=== PATIENT | female | born 1945 | race Caucasian/White ===

== ENCOUNTER → 2020-10-17 12:56 | Outpatient (CLI) | payer MEDICARE, OTHER, SELFPAY ==
--- NOTE | 2020-10-17 12:58 | CDU_ITS ---
Reason For Study: carotid stenosis Rt. Velocities/BP Lt. Velocities/BP Prox CCA 60.4/10.8 cm/sec. Prox CCA 59.3/17.6 cm/sec. Mid CCA 57.8/13.4 cm/sec. Mid CCA 59.3/16.3 cm/sec. Dist CCA 56.5/13.4 cm/sec. Dist CCA 58.1/17.6 cm/sec. Prox ICA 81.2/14.7 cm/sec. Prox ICA 49.5/18.8 cm/sec. Mid ICA 119.1/33.0 cm/sec. Mid ICA 60.5/23.7 cm/sec. Dist ICA 82.9/22.8 cm/sec. Dist ICA 85.1/27.4 cm/sec. Rt. ICA/CCA = 2.1. Lt. ICA/CCA = 1.4. Prox ECA 74.7/5.6 cm/sec. Prox ECA 77.7/7.7 cm/sec. Rt. Vert. 41.9/9.7 cm/sec. Lt. Vert. 42.1/9.0 cm/sec. Right Extracranial There is intimal thickening but no significant atherosclerotic plaque noted in the right common carotid artery. There is heterogeneous, irregular atherosclerotic plaque noted in the right internal carotid artery. The atherosclerotic plaque causes acoustic shadowing. There is intimal thickening but no significant atherosclerotic plaque noted in the right external carotid artery. Antegrade flow is noted in the right vertebral artery. Left Extracranial There is homogeneous, smooth atherosclerotic plaque noted in the left common carotid artery. There is heterogeneous, irregular atherosclerotic plaque noted in the left internal carotid artery. There is intimal thickening but no significant atherosclerotic plaque noted in the left external carotid artery. Antegrade flow is noted in the left vertebral artery. Procedure Carotid Duplex 41987. This is a Carotid Duplex examination using B-mode, color flow and specral Doppler. The exam was diagnostic. Exam performed in department. Interpretation Summary Mild (<50%) stenosis right extracranial internal carotid. Mild (<50%) stenosis left extracranial internal carotid. Flow within the vertebral arteries is antegrade bilaterally. Ordering Physician: Vance Last Performed By: Hector Bermudez RVT
== END ==
PROVIDERS: PCP Family Medicine; Referring Provider Surgery Vascular Surgery; Visit Provider Surgery Vascular Surgery
DX: I65.21 Occlusion and stenosis of right carotid artery (principal)
CPT/HCPCS: 93880